=== PATIENT | male | born 1990 | race Caucasian/White ===

== ENCOUNTER 2019-10-25 20:40 | Emergency (ER) | payer OTHER ==
[2019-10-25] MEDS ORDERED: Iopamidol 612 MG/ML 100 ML Bottle IVPUSH ONE (20:44)
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
[2019-10-25 21:53] LABS: ANION GAP 12.6 mEq/L (7-13); CHLORIDE,CL 104 mmol/L (98-107); SODIUM,NA 140 mmol/L (136-145)
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
[2019-10-25] MEDS ORDERED: levETIRAcetam 500 MG in Sodium Chloride 0.9% 100 ML IV ONE (22:00)
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
== END 2019-10-25 22:39 ==
LOC: DL.ED 20:40
DX: S06.6X9A Traumatic subarachnoid hemorrhage with loss of consciousness of unspecified duration, initial encounter (principal); S06.5X9A Traumatic subdural hemorrhage with loss of consciousness of unspecified duration, initial encounter; S01.81XA Laceration without foreign body of other part of head, initial encounter; S41.011A Laceration without foreign body of right shoulder, initial encounter; V89.2XXA Person injured in unspecified motor-vehicle accident, traffic, initial encounter
CPT/HCPCS: 36415; 70450; 70486; 71260; 72125; 72128; 72131; 74177; 80053; 80305; 80307; 81001; 85025; 96374; 99285; J1953; J7050; Q9967